=== PATIENT | female | born 1930 | race Caucasian/White ===

== ENCOUNTER 2019-04-18 13:15 | Observation (INO) ==
--- NOTE | 2019-04-18 13:47 | Emergency Department Note ---
Disposition Clinical Impression: Congestive heart failure Qualifiers: Heart failure type: other Qualified Code(s): I50.9 - Heart failure, unspecified Disposition: Admitted As Inpatient Condition: Fair Time of Disposition: 16:28 SOB HPI - General Chief Complaint: ED Shortness of Breath/Dyspnea Stated Complaint: ALTAGRACIA Time Seen by Provider: 04/18/19 13:26 Source: patient Limitations: no limitations Nursing Notes Reviewed: Yes Vital Signs Reviewed: Yes - History of Present Illness Mrs. Wei is a 89yo female with a pastmedhx of Afib on eliquis and CHF with ICD presenting with shortness of breath that is worsening. Patient originally went into Afib in July requiring ICD placement. Patient states that she has been short of breath since then, but it has recently worsened. Patient has increased her oxygen use to around the clock with little relief. Patient currently wears 4 L nasal cannula as needed. She states that her symptoms are worse with any type of exertion as well as when lying flat. She denies any chest pain. She has not had any cough, productive sputum, fevers or chills. No nausea, vomiting, diarrhea. No chest pain or history of DVT/PE. All systems ED: reviewed and negative except as stated. Review of Systems: As Per HPI Constitutional: Denies: fever, chills Cardiovascular: Denies: chest pain, palpitations Respiratory: Reports: dyspnea. Denies: cough Gastrointestinal: Denies: abdominal pain, nausea, vomiting, diarrhea Musculoskeletal: Denies: back pain Neurological: Denies: headache Past Medical History - Past Medical History Medical history: Reports: atrial fibrillation, CHF, hyperlipidemia, renal disease Psychiatric history: Reports: no psych history - Social History Smoking Status: Never smoker Alcohol use: Reports: none Drug use: Reports: none Physical Exam - General Limitations: no limitations General appearance: alert, in no apparent distress - Head Head exam: atraumatic, normocephalic - Eye Eye exam: Present: normal appearance - ENT ENT exam: normal exam, normal oropharynx, mucous membranes moist - Chest Chest inspection: Present: normal inspection - Respiratory Respiratory exam: Present: normal lung sounds bilaterally. Absent: respiratory distress, wheezes, accessory muscle use, prolonged expiratory phase - Cardiovascular Cardiovascular exam: Present: bradycardia, irregular rhythm - Abdominal Exam Abdominal exam: Present: soft, Non-Tender - Extremities Exam Extremities exam: Present: normal inspection, normal capillary refill. Absent: pedal edema - Expanded Lower Extremity Exam Neurovascular/Tendon exam: Absent: motor deficit, sensory deficit, tendon deficit - Back Exam Back exam: Present: normal inspection - Neurological Exam Neurological exam: Present: alert, oriented X3 - Psychiatric Psychiatric exam: Present: normal affect, normal mood - Skin Skin exam: Present: warm, dry, intact, normal color Course Vital Signs Temperature 97.5 F L 04/18/19 13:30 Pulse Rate 49 04/18/19 13:30 Respiratory Rate 18 04/18/19 13:30 Blood Pressure 153/60 04/18/19 13:30 O2 Sat by Pulse Oximetry 96 04/18/19 13:30 Temperature 97.5 F L 04/18/19 13:43 Pulse Rate 57 04/18/19 15:00 Respiratory Rate 16 04/18/19 15:00 Blood Pressure 160/48 04/18/19 15:00 O2 Sat by Pulse Oximetry 98 04/18/19 15:00 Oxygen Delivery Oxygen Delivery Room Air Shortness of Breath/Dyspnea - [facility] Narrative Medical decision making narrative: Patient is an 89-year-old female who is presenting with shortness of breath. On arrival, patient is on 2 L nasal cannula satting at 96%. Otherwise vitals appear to be within normal limits. Patient is cleared also taking bilaterally, no pedal edema. CBC is distant the patient's hemoglobin at 9.9, no active bleeding per patient, unknown baseline as no old labs in the chart. Patient's BNP is also elevated, unknown baseline. Chest x-ray shows cardiomegaly without edema. Serum creatinine is also elevated at 3.47, patient's family does state she has significant kidney disease and is appears to be her relative baseline per family. Patient remains on oxygen supplementation at this point in time. Given the elevated BNP and increased oxygen requirement, patient will be admitted for further observation and treatment. - Medical Records Medical records reviewed: Yes I reviewed the patient's medical records. - Lab Data Lab results reviewed: Yes I reviewed the patient's lab results. Result diagrams: 04/18/19 14:10 04/18/19 14:10 Lab Results 04/18/19 04/18/19 04/18/19 Range/Units 14:10 14:10 14:10 WBC 7.1 (4.3-11.1) K/mcL RBC 3.13 L (3.82-4.97) M/mcL Hgb 9.6 L (11.5-15.4) g/dL Hct 29.2 L (35.3-44.9) % MCV 93.3 (83.0-100.0) fL MCH 30.7 (28.0-33.3) pg MCHC 32.9 (31.6-35.5) g/dL RDW 15.6 H (11.5-14.5) % Plt Count 193 (140-400) K/mcL MPV 8.4 L (9.4-12.4) fL Immature Gran % 0.6 (0-4) % Seg Neutrophils % 77.5 % Lymphocytes % 13.2 % Monocytes % 6.9 % Eosinophils % 1.4 % Basophils % 0.4 % Neutrophils # 5.5 (1.6-8.9) K/mcL Lymphocytes # 0.9 (0.6-4.6) K/mcL Monocytes # 0.5 (0.0-1.3) K/mcL Eosinophils # 0.1 (0.0-0.6) K/mcL Basophils # 0.0 (0.0-0.2) K/mcL D-Dimer (0-500) ng/mLFEU Sodium 135 L (136-145) mEq/L Potassium 4.5 (3.5-5.1) mEq/L Chloride 103 (98-107) mEq/L Carbon Dioxide 22 L (23-29) mEq/L BUN 54 H (8-23) mg/dL Creatinine 3.27 H (0.60-1.20) mg/dL Est GFR ( Amer) 16 L (> 60) Est GFR (Non-Af Amer) 13 L (> 60) BUN/Creatinine Ratio 17 (6-26) Glucose 112 H (70-105) mg/dL Calculated Osmolality 296 (280-300) Lactic Acid 0.6 (0.5-2.2) mmol/L Calcium 10.3 (8.6-10.3) mg/dL Troponin I < 0.03 (< 0.04) ng/mL B-Natriuretic Peptide (Less than 100) pg/mL Procalcitonin (0.00-0.15) ng/mL 04/18/19 04/18/19 04/18/19 Range/Units 14:10 14:10 14:10 WBC (4.3-11.1) K/mcL RBC (3.82-4.97) M/mcL Hgb (11.5-15.4) g/dL Hct (35.3-44.9) % MCV (83.0-100.0) fL MCH (28.0-33.3) pg MCHC (31.6-35.5) g/dL RDW (11.5-14.5) % Plt Count (140-400) K/mcL MPV (9.4-12.4) fL Immature Gran % (0-4) % Seg Neutrophils % % Lymphocytes % % Monocytes % % Eosinophils % % Basophils % % Neutrophils # (1.6-8.9) K/mcL Lymphocytes # (0.6-4.6) K/mcL Monocytes # (0.0-1.3) K/mcL Eosinophils # (0.0-0.6) K/mcL Basophils # (0.0-0.2) K/mcL D-Dimer 254 (0-500) ng/mLFEU Sodium (136-145) mEq/L Potassium (3.5-5.1) mEq/L Chloride (98-107) mEq/L Carbon Dioxide (23-29) mEq/L BUN (8-23) mg/dL Creatinine (0.60-1.20) mg/dL Est GFR ( Amer) (> 60) Est GFR (Non-Af Amer) (> 60) BUN/Creatinine Ratio (6-26) Glucose (70-105) mg/dL Calculated Osmolality (280-300) Lactic Acid (0.5-2.2) mmol/L Calcium (8.6-10.3) mg/dL Troponin I (< 0.04) ng/mL B-Natriuretic Peptide 944 H (Less than 100) pg/mL Procalcitonin 0.11 (0.00-0.15) ng/mL - Radiology Data Radiology results reviewed: Yes I reviewed the patient's radiology results. Chest X-Ray 04/18/19 14:00 IMPRESSION: Cardiomegaly without edema. D/ / 04/18/2019 14:54:14 Lazaro Adler MD / bcarter Interpreting Provider: Lazaro Adler MD - EKG Data EKG attestation: Yes I reviewed and interpreted this EKG. EKG results narrative: EKG performed with ventricular rate of 49, P-R prolongation at 220 with intermittent episodes of atrial fibrillation and first-degree AV block. No ST segment elevation or depression. Attestation Statement - Attestation Attestation: I, Trevin Hurst, examined this patient and my medical decision-making was reviewed with the CREDIT OR LOANS OFFICER/PA/Advanced Practice Nurse/Resident Physician. I agree with the documented findings, disposition and treatment plan as described except to the extent set forth below. 89-year-old female presents emergency Department with concerns of difficulty in breathing. Patient states this that this feels similar to her previous CHF exacerbations however she states that she does not have swelling of the lower extremities like her previous exacerbations. Patient states she has been taking Lasix 40 mg twice a day over the past few weeks for treatment of her CHF. Patient reports increasing shortness of breath over the past few days which is similar to her previous CHF exacerbations She denies chest pain or palpitations, syncope, nausea, vomiting, diarrhea, hematochezia, melena. BNP is mildly elevated. Patient has elevation of her creatinine however family states she does have a history of kidney disease. Patient feels comfortable with the plan to be admitted to the hospital for further care and evaluation.
[2019-04-18 14:23] LABS: Basophils % 0.4 %; Eosinophils # 0.1 K/mcL (0.0-0.6); Eosinophils % 1.4 %; Hematocrit 29.2 % (35.3-44.9); Hemoglobin 9.6 g/dL (11.5-15.4); Immature Granulocytes % 0.6 % (0-4); Lymphocytes # 0.9 K/mcL (0.6-4.6); Lymphocytes % 13.2 %; Mean Corpuscular HGB Conc 32.9 g/dL (31.6-35.5); Mean Corpuscular Hemoglobin 30.7 pg (28.0-33.3); Mean Corpuscular Volume 93.3 fL (83.0-100.0); Mean Platelet Volume 8.4 fL (9.4-12.4); Monocytes # 0.5 K/mcL (0.0-1.3); Monocytes % 6.9 %; Neutrophils # 5.5 K/mcL (1.6-8.9); Platelet Count 193 K/mcL (140-400); Red Blood Count 3.13 M/mcL (3.82-4.97); Red Cell Distribution Width 15.6 % (11.5-14.5); Segmented Neutrophils % 77.5 %; White Blood Count 7.1 K/mcL (4.3-11.1)
[2019-04-18 14:44] LABS: BUN/Creatinine Ratio 17 (6-26); Blood Urea Nitrogen 54 mg/dL (8-23); Calcium 10.3 mg/dL (8.6-10.3); Carbon Dioxide 22 mEq/L (23-29); Chloride 103 mEq/L (98-107); Glucose 112 mg/dL (70-105); Osmolality,Calculated 296 (280-300); Potassium 4.5 mEq/L (3.5-5.1); Sodium 135 mEq/L (136-145); eGFR For African Americans 16 (> 60); eGFR For Non-African Americans 13 (> 60)
[2019-04-18 14:45] LABS: Troponin I < 0.03 ng/mL (< 0.04)
--- NOTE | 2019-04-18 16:47 | Internal Med History&Physical ---
Date of Encounter: 04/18/19 Time of Encounter: 16:45 Internal Medicine - H&P: HPI Chief complaint: Shortness of Breath Admitted From: Home Plans for Post Hospital Care: Home History of present illness: Ms. Wei is a 89 year old female past medical history of atrial fibrillation, congestive heart failure, security, hyperlipidemia, and hypertension presents to the emergency room complaining of shortness of breath which has been getting worse or possibly 2 days. Patient reports shortness of breath on exertion. Patient does reports orthopnea. Patient denied cough and fever and chills. Patient denies any leg swelling and weight gain. Patient reports that he has been using more pillows since last 2 days because she is feeling increasingly short of breath. Patient decided completely emergency room due to increased shortness of breath. Patient denied any nausea vomiting diarrhea and abdominal pain. Patient denied and tingling, numbness, weakness, and dizziness. Upon presentation to the emergency room patient's chest x-ray cardiomegaly. Patient's is negative for pneumonia. EKG was done which showed prolonged OR interval at 218. EKG was negative for any acute ischemic changes. EKG was rate controlled in sinus rhythm. Patient's BNP was elevated. Patient troponin and pro calcitonin was within normal limit. D diamer was WNL. Patient's creatinine was around 3. GFR is around 13. Patient reports that she has a history of chronic kidney disease and her GFR is around 13-16 in past 8 months. Patient has been in the hospital multiple times for shortness of breath and possible months. Patient was recently hospitalized at [facility] one month ago. Past Med Surg Social Fam HX - Past Medical History Medical history: atrial fibrillation, CHF, hyperlipidemia, renal disease Psychiatric history: no psych history - Past Surgical History Surgical History: other (Loop recorder palced) - Social History Smoking Status: Never smoker Alcohol use: none Drug use: none - Family History Mother History Unknown: Yes Father History Unknown: Yes Internal Medicine - H&P: Meds Amiodarone [Cordarone] 100 mg PO DAILY 04/18/19 [History] Amlodipine Besylate 10 mg PO DAILY 04/18/19 [History] Apixaban [Eliquis] 2.5 mg PO BID 04/18/19 [History] Calcitriol [Rocaltrol] 0.25 mcg PO DAILY 04/18/19 [History] Ergocalciferol (VITAMIN D2) [Vitamin D2] 50,000 unit PO Q1W 04/18/19 [History] Ferrous Sulfate [Iron] 325 mg PO DAILY 04/18/19 [History] Furosemide [Lasix] 40 mg PO BID 04/18/19 [History] Montelukast Sodium [Singulair] 10 mg PO DAILY 04/18/19 [History] Pravastatin Sodium [Pravachol] 40 mg PO DAILY 04/18/19 [History] Preservision Areds 2 Softgel 1 PO BID 04/18/19 [History] hydrALAZINE [HydrALAZINE] 25 mg PO BID 04/18/19 [History] Allergy/AdvReac Type Severity Reaction Status Date / Time allopurinol Allergy Hives Verified 04/18/19 17:18 All Systems PM: A 10-system review of systems was performed and is negative for pertinent findings except as documented above in the HPI. - Constitutional Vitals: Temp Pulse Resp BP Pulse Ox 97.5 F L 63 16 168/57 97 04/18/19 13:43 04/18/19 16:00 04/18/19 16:00 04/18/19 16:00 04/18/19 16:00 General appearance: Present: cooperative, A&O X 3 Exam: General: A & O 3, In no acute distress HENNT: PERRLA. Head atraumatic and makes supple CVS S1 and S2 regular, no murmur. Trace edema bolaterally RS: Basal rales b/l Abdomen: Soft and nontender. Bowel sounds normal 4 Extremities: No cyanosis, clubbing, and edema Neurology: Cranial 2 through 12 normal. Motor strength 5/5 bilaterally. Sensation intact Internal Med - H&P Results - Labs CBC & Chem 7: 04/18/19 14:10 04/18/19 14:10 Labs: Short CBC 04/18/19 Range/Units 14:10 WBC 7.1 (4.3-11.1) K/mcL Hgb 9.6 L (11.5-15.4) g/dL Hct 29.2 L (35.3-44.9) % Plt Count 193 (140-400) K/mcL Neutrophils # 5.5 (1.6-8.9) K/mcL BMP 04/18/19 14:10 Sodium 135 L Potassium 4.5 Chloride 103 Carbon Dioxide 22 L BUN 54 H Creatinine 3.27 H Glucose 112 H Calcium 10.3 Cardiac Enzymes 04/18/19 Range/Units 14:10 Troponin I < 0.03 (< 0.04) ng/mL - Impressions ITS Impressions Chest X-Ray 04/18/19 14:00 IMPRESSION: Cardiomegaly without edema. D/ / 04/18/2019 14:54:14 Lazaro Adler MD / [email or web address] Interpreting Provider: Lazaro Adler MD - Assessment and Plan (1) CHF exacerbation Current Visit: Yes Status: Acute Assessment and plan: Patient presents to the emergency department complaining of shortness of breath for past 2 days. Patient also reports osteopenia. Patient denied any neck swelling and weight gain. Patient has been told that she has diastolic heart failure in the past. Patient's BNP level was elevated at 944 in the emergency room. Troponin was negative. Pro-calcitonin was negative. D diamer was negative. Chest x-ray showed cardiomegaly. Apart from that chest x-ray was negative for any acute cardiopulmonary process. EKG was done which showed prolonged OR interval at 218. EKG was negative for any acute ischemic changes. EKG was rate controlled in sinus rhythm. - IV Lasix - Strict I's and O's - Daily weight - Trend troponin - Echo - Will continue to monitor Qualifiers: Heart failure type: diastolic Qualified Code(s): I50.33 - Acute on chronic diastolic (congestive) heart failure (2) Acute kidney injury superimposed on CKD Current Visit: Yes Status: Acute Assessment and plan: Patient's initial workup in the emergency room showed creatinine of 3.2 and GFR of 13. 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 Patient's potassium is within normal limits. Baseline creatinine is not known. Creatinine might be elevated due to cardiorenal syndrome. Will treat patient for CHF exacerbation. We will monitor creatinine tomorrow. Consider nephrology consult if needed. (3) Hyperlipidemia Current Visit: Yes Status: Acute Assessment and plan: Continue home statin. Qualifiers: Hyperlipidemia type: unspecified Qualified Code(s): E78.5 - Hyperlipidemia, unspecified (4) Atrial fibrillation Current Visit: Yes Status: Acute Assessment and plan: Patient is currently rate controlled. We will continue other course and amiodarone. Qualifiers: Atrial fibrillation type: chronic Qualified Code(s): I48.2 - Chronic atrial fibrillation (5) Essential hypertension Current Visit: Yes Status: Acute Assessment and plan: Continue home Norvasc 10 mg daily. (6) DVT prophylaxis Current Visit: Yes Status: Acute Assessment and plan: ELiquis 2.5 po BID - Time Spent With Patient Total time spent is greater than 50% in coordination of care (as documented) at patient's floor/unit and/or counseling patient: Greater than 35 minutes
[2019-04-18] MEDS ORDERED: Naloxone 0.4 MG/ML INJ IVP PRN (17:35)
[2019-04-18] MEDS: Apixaban 5 MG TABLET PO SCH (21:05)
[2019-04-18] MEDS: hydrALAZINE 25 MG TABLET PO SCH (21:06)
[2019-04-18] MEDS: Furosemide 40 MG/4 ML VIAL IVP SCH (21:12)
[2019-04-19 02:25] LABS: Calcium 10.7 mg/dL (8.6-10.3); Magnesium 2.8 mg/dL (1.6-2.6); Phosphorous 5.8 mg/dL (2.7-4.5); Potassium 4.1 mEq/L (3.5-5.1)
[2019-04-19 04:54] LABS: Basophils % 0.5 %; Eosinophils # 0.1 K/mcL (0.0-0.6); Eosinophils % 1.9 %; Hematocrit 28.5 % (35.3-44.9); Hemoglobin 9.2 g/dL (11.5-15.4); Immature Granulocytes % 0.5 % (0-4); Lymphocytes % 12.8 %; Mean Corpuscular HGB Conc 32.3 g/dL (31.6-35.5); Mean Corpuscular Hemoglobin 30.7 pg (28.0-33.3); Mean Platelet Volume 8.8 fL (9.4-12.4); Monocytes # 0.5 K/mcL (0.0-1.3); Monocytes % 6.4 %; Neutrophils # 5.8 K/mcL (1.6-8.9); Platelet Count 199 K/mcL (140-400); Red Cell Distribution Width 15.4 % (11.5-14.5); Segmented Neutrophils % 77.9 %; White Blood Count 7.5 K/mcL (4.3-11.1)
[2019-04-19] MEDS: Apixaban 5 MG TABLET PO SCH (08:24)
[2019-04-19] MEDS: Furosemide 40 MG/4 ML VIAL IVP SCH (08:24)
[2019-04-19] MEDS: hydrALAZINE 25 MG TABLET PO SCH (08:27)
[2019-04-19] MEDS ORDERED: *HR* Amiodarone 200 MG TABLET PO SCH (09:00)
[2019-04-19] MEDS ORDERED: amLODIPine 5 MG TABLET PO SCH (09:00)
[2019-04-19 11:42] VITALS: BP 171/61
--- NOTE | 2019-04-19 15:07 | Discharge Summary ---
- NOTES TO OUTPATIENT PROVIDER Notes to Outpatient Provider: She was admitted to the hospital for observation due to difficulty in breathing. Patient was treated for acute diastolic CHF exacerbation. Patient improved on IV Lasix therapy. Patient was discharged home in stable condition with continuing home medication. Patient advised to continue to use home oxygen. Follow-up with primary care provider within one week. Follow-up with cardiology outpatient. Estimated PT Needs at Discharge: None Date of Encounter: 04/19/19 Time of Encounter: 15:04 - Discharge Diagnosis (1) CHF exacerbation Priority: Primary Status: Acute Qualifiers: Heart failure type: diastolic Qualified Code(s): I50.33 - Acute on chronic diastolic (congestive) heart failure (2) Acute kidney injury superimposed on CKD Priority: Secondary Status: Acute (3) Hyperlipidemia Priority: Secondary Status: Acute Qualifiers: Hyperlipidemia type: unspecified Qualified Code(s): E78.5 - Hyperlipidemia, unspecified (4) Atrial fibrillation Priority: Secondary Status: Acute Qualifiers: Atrial fibrillation type: chronic Qualified Code(s): I48.2 - Chronic atrial fibrillation (5) Essential hypertension Priority: Secondary Status: Acute (6) DVT prophylaxis Priority: Secondary Status: Acute Hospital course: Ms. Wei is a 89 year old female Discharge discussed with: patient, family, nurse, social work - Time Spent with Patient Total time spent providing and/or coordinating discharge services: 40 Time spent: Greater than 30 minutes - Discharge Medications Prescriptions: Continued Amiodarone [Cordarone] 100 mg PO DAILY Amlodipine Besylate 10 mg PO DAILY Montelukast Sodium [Singulair] 10 mg PO DAILY Pravastatin Sodium [Pravachol] 40 mg PO DAILY Apixaban [Eliquis] 2.5 mg PO BID Furosemide [Lasix] 40 mg PO BID hydrALAZINE [HydrALAZINE] 25 mg PO BID Calcitriol [Rocaltrol] 0.25 mcg PO DAILY Ferrous Sulfate [Iron] 325 mg PO DAILY Ergocalciferol (VITAMIN D2) [Vitamin D2] 50,000 unit PO Q1W Preservision Areds 2 Softgel 1 PO BID Home Medications: Amiodarone [Cordarone] 100 mg PO DAILY 04/18/19 [History] Amlodipine Besylate 10 mg PO DAILY 04/18/19 [History] Apixaban [Eliquis] 2.5 mg PO BID 04/18/19 [History] Calcitriol [Rocaltrol] 0.25 mcg PO DAILY 04/18/19 [History] Ergocalciferol (VITAMIN D2) [Vitamin D2] 50,000 unit PO Q1W 04/18/19 [History] Ferrous Sulfate [Iron] 325 mg PO DAILY 04/18/19 [History] Furosemide [Lasix] 40 mg PO BID 04/18/19 [History] Montelukast Sodium [Singulair] 10 mg PO DAILY 04/18/19 [History] Pravastatin Sodium [Pravachol] 40 mg PO DAILY 04/18/19 [History] Preservision Areds 2 Softgel 1 PO BID 04/18/19 [History] hydrALAZINE [HydrALAZINE] 25 mg PO BID 04/18/19 [History] Allergies/Adverse Reactions: Allergy/AdvReac Type Severity Reaction Status Date / Time allopurinol Allergy Hives Verified 04/18/19 17:18 Date of admission: 04/18/19 19:04 Primary care physician: SHERRI Lala Consults: 04/19/19 14:28 Consult to Nurse Navigator [CONS] Routine Comment: CHF Discharging clinician: Go Valdes - Constitutional Vitals: Temp Pulse Resp BP Pulse Ox 97.8 F 68 17 171/61 97 04/19/19 11:40 04/19/19 11:40 04/19/19 11:40 04/19/19 11:40 04/19/19 11:40 General appearance: Present: cooperative, A&O X 3 Exam: General: A & O 3, In no acute distress HENNT: PERRLA. Head atraumatic and makes supple CVS S1 and S2 regular, no murmur. Trace edema bolaterally RS: Minimal basilar rales bilaterally Abdomen: Soft and nontender. Bowel sounds normal 4 Extremities: No cyanosis, clubbing, and edema Neurology: Cranial 2 through 12 normal. Motor strength 5/5 bilaterally. Sensation intact - Patient Status Disposition: Home, Self-Care Condition: Good Overall status at discharge: patient is progressing back to baseline - Discharge Instructions Follow Up With: Taylor Torres, [employer]ATING UNIT SUPERVISOR [Primary Care Provider] - - Diet and Activity Activity: increase activity as tolerated Diet: low salt diet
--- NOTE | 2019-04-22 00:02 | Electrocardiograph Report ---
[facility] TEAM INTERVAL Test Date: 2019-04-18 Pat Name: Jackie Wei Department: [id number] Room: 2A39 Gender: F Associate Programmer Analyst: : [id number] Requested By: Adrianne Torres Order Number: [id number] Reading MD: Arsenio Haas Measurements Intervals Adger Rate: 57 P: -44 IA: 218 QRS: -38 QRSD: 87 T: 73 QT: 436 QTc: 425 Interpretive Statements Sinus rhythm Borderline prolonged IA interval Probable LVH with secondary repol abnrm Left axis deviation Electronically Signed On 04-22-2019 0:00:59 EDT by Arsenio Haas
== END 2019-04-19 15:55 | disposition home or self-care (01) ==
LOC: 2ANU 13:15 → EMEROOARM 13:15 → SUATTDRO 19:04 → 2ANU 19:52
PROVIDERS: ADMIT Internal Medicine; ATTEND Family Medicine